=== PATIENT | male | born 1955 | race Caucasian/White ===

== ENCOUNTER 2017-03-10 09:52 | Day surgery (SDC) | payer BC ==
[~2017-03-10] VITALS: Ht 185.4 cm; Wt 122.7 kg
[~2017-03-10 09:52] MED LIST: ATOR10TA88 PO; CARV6.252 PO; CTP/1 PO; CYCL10TA6 PO; LACTATED RINGER'S 1000ML 1,000 ML IV SCH; LORA-741 PO; TRAM-10 PO; VENL150T33 PO
[2017-03-10] MEDS ORDERED: TAMS0.4C38 PO (10:21)
[2017-03-10 10:24] VITALS: BP 166/96; PULSE 78; TEMP 36.4; O2SAT 95; Ht 185.4 cm; Wt 122.7 kg
[2017-03-10] MEDS ORDERED: CEFAZOLIN 3000 MG/65 ML D5W IV SCH (10:30)
[2017-03-10] MEDS ORDERED: PROPOFOL IV EMULSION 10 MG/ML 20 ML VIAL IV ONE (11:22)
[2017-03-10] MEDS ORDERED: MIDAZOLAM HCL 1 MG/ML 2ML VIAL ONE (11:22)
[2017-03-10] MEDS ORDERED: FENTANYL CITRATE INJ 50 MCG/1 ML 2 ML VIAL ONE (11:22)
[2017-03-10] MEDS ORDERED: ONDANSETRON INJ 2 MG/ML 2 ML VIAL ONE (11:22)
[2017-03-10] MEDS ORDERED: DEXAMETHASONE SOD INJ 4 MG/ML VIAL ONE (11:22)
[2017-03-10] MEDS ORDERED: LIDOCAINE HCL 2% 2 ML VIAL (20MG/ML) ONE (11:22)
--- NOTE | 2017-03-10 12:03 | History & Physical Bridge Note ---
H&P Re-Evaluation Bridge Note: I have examined the patient, reviewed the History & Physical and in the interval since the performance of the History & Physical I have noted the following changes of clinical significance: No changes noted
--- NOTE | 2017-03-10 12:55 | [facility] Operative Report ---
Operative Report Operative Date Mar 10, 2017. Pre-Operative Diagnosis Obstructing left kidney stone Post-Operative Diagnosis Obstructing left kidney stone Procedure(s) Performed Cystoscopy, Left Stent Placement Surgeon Cindy Perinatal Coordinator Surgeon(s) none Estimated Blood Loss 0mL Findings radio-opaque left renal pelvis stone large Fluids 500mL Specimens none Drains 6 fr 26 centimeter double J stent Anesthesia IV sedation Complication(s) None Disposition Recovery Room / PACU Indications intermittently obstruction of UPJ by large left kidney stone, we plan stent to dilate ureter to allow for stone removal surgery with ureteral access sheath in 2 weeks Description of Procedure Patient was sedated and placed in lithotomy position. His genitals were prepped and draped in sterile fashion. Time out held with team. I placed a 21 fr rigid cystoscope to bladder. The urethra is unremarkable. The prostate is unremarkable medium, slightly elevates the bladder neck. The UOs are normal small oval shape. I placed a bentson wire up left ureter with some resistance to passage at the upper ureter just below the UPJ and placed a 24 centimeter 6 Fr double J stent easily. There is brisk efflux after placement. I left bladder empty and concluded case. I placed a belladonna and opium suppository for post-op pain. He transferred to recovery under my escort, in stable condition. 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 Any exceptions are noted below.
--- NOTE | 2017-03-10 12:56 | Discharge Instructions ---
Discharge Instructions Date of Service Mar 10, 2017. Admission Reason for Admission: Kidney Stone Discharge Discharge Diagnosis / Problem: left intermittently obstructing kidney stone Discharge Goals Goal(s): Decrease discomfort, Improve disease control Activity Recommendations Activity Limitations: resume your previous activity Lifting Limitations: none Exercise/Sports Limitations: as tolerated May Resume Sexual Activity: when tolerated Shower/Bathe: no limitations Driving or Machine Use: resume 1 day after discharge . Discharge Diet Recommended Diet: Regular Diet Fluid Restriction: None Procedures Procedures Performed: Cystoscopy, Left Stent Placement Pending Studies Studies pending at discharge: no Medical Emergencies . Who to Call and When: Medical Emergencies: If at any time you feel your situation is an emergency, please call 911 immediately. . Non-Emergent Contact Non-Emergency issues call your: Urologist ([phone]) Call Non-Emergent contact if: temperature is above 100.5 . . "Provider Documentation" section prepared by Jocelynn White. . VTE Core Measure Inpt VTE Proph given/why not?: SCD's [place] Drug Monitoring Program Search Results: patient reviewed within database, no issues identified
[2017-03-10 13:00] VITALS: BP 145/77; PULSE 75; TEMP 36.4; O2SAT 97
[2017-03-10] MEDS ORDERED: EpHEDrine SULFATE INJ 50 MG/ML AMP IV PRN (13:00)
[2017-03-10] MEDS ORDERED: ATROPINE SULFATE 0.1 MG/ML 5ML SYR IV PRN (13:00)
[2017-03-10 13:30] VITALS: BP 168/88; PULSE 76; TEMP 36.2; O2SAT 97
--- NOTE | 2017-03-10 14:22 | DIAGNOSTIC IMAGING REPORT ---
KUB CLINICAL HISTORY: LT CYSTO/STENT stent placement TECHNIQUE: Image intensifier COMPARISON STUDY: None FINDINGS: Passage of a guidewire to the left renal collecting system. This is followed by stent placement. IMPRESSION: Image intensifier usage intraoperatively for left ureteral stent placement The above report was generated using voice recognition software. It may contain grammatical, syntax or spelling errors. Electronically signed by: Dangelo Maya M.D. 03/10/2017 2:21 PM Dictated Date/Time: 03/10/2017 2:20 PM
--- NOTE | 2017-03-10 15:38 | Anesthesiology Progress Note ---
Anesthesia Post Op Note Date & Time Mar 10, 2017 at 15:38 Vital Signs Pain Intensity: 0 Vital Signs Past 12 Hours Date Time Temp Pulse Resp B/P (MAP) Pulse Ox O2 Delivery O2 Flow Rate FiO2 03/10/17 13:30 36.2 76 16 168/88 97 Room Air 03/10/17 13:00 36.4 75 16 145/77 97 Room Air 03/10/17 10:24 36.4 78 20 166/96 (119) 95 Room Air Notes Mental Status: alert / awake / arousable, participated in evaluation Pt Amnestic to Procedure: Yes Nausea / Vomiting: adequately controlled Pain: adequately controlled Airway Patency, RR, SpO2: stable & adequate BP & HR: stable & adequate Hydration State: stable & adequate Anesthetic Complications: no major complications apparent
== END 2017-03-10 13:33 | disposition home or self-care (01) ==
LOC: C.ACU 09:52
PROVIDERS: ATTEND Urology
DX: N20.0 Calculus of kidney (principal); F32.9 Major depressive disorder, single episode, unspecified; E78.5 Hyperlipidemia, unspecified; N52.9 Male erectile dysfunction, unspecified; I10 Essential (primary) hypertension; F17.220 Nicotine dependence, chewing tobacco, uncomplicated; Z90.49 Acquired absence of other specified parts of digestive tract

== ENCOUNTER 2017-06-05 20:22 | Observation (INO) | payer BC ==
[~2017-06-05] VITALS: Ht 185.4 cm; Wt 122.7 kg
[~2017-06-05 20:22] MED LIST changes: +ATOR10TA82 PO; -ATOR10TA88 PO; -CARV6.252 PO; -LACTATED RINGER'S 1000ML 1,000 ML IV SCH; -LORA-741 PO; +TAMS0.4C38 PO
[2017-06-05] MEDS ORDERED: FENTANYL CITRATE INJ 50 MCG/1 ML 2 ML VIAL IV STA (20:38)
[2017-06-05] MEDS ORDERED: SODIUM CHLORIDE 0.9% 500ML 500 ML IV STA (20:38)
[2017-06-05] MEDS ORDERED: HYDR-5688 PO (20:53)
[2017-06-05] MEDS ORDERED: CTP2 PO (20:53)
--- NOTE | 2017-06-05 21:17 | DIAGNOSTIC IMAGING REPORT ---
LUMBAR SPINE 2 OR 3 VIEWS CLINICAL HISTORY: 62 years-old Male presenting with severe lower back pain, surgery last , now with back spasms . TECHNIQUE: Frontal, lateral, and coned in lateral views of the lumbar spine were obtained. COMPARISON: 03/10/2017. FINDINGS: Normal lumbar lordosis. Bilateral transpedicular screw and esteban fixation of L4-S1 with bridging esteban at L4-5. Laminectomy defects at L4 and L5 with bone graft material noted. Midline posterior skin omar. Normal anatomic alignment. Nonoperative levels demonstrate normal vertebral body heights and intervertebral disc spaces. Degenerative change most apparent in the lower lumbar spine. No radiographic evidence of fracture or subluxation. No gross hardware complication. Nonobstructive bowel gas pattern. Mild gaseous distention of colon. IMPRESSION: 1. Postsurgical changes of L4-S1 posterior fusion with L4-5 laminectomies. No gross hardware complication. 2. No radiographic evidence of acute osseous injury of the lumbar spine. Electronically signed by: Rick Oswald M.D. 06/05/2017 9:15 PM Dictated Date/Time: 06/05/2017 9:12 PM
[2017-06-05 21:22] LABS: BASO % 0.3 %; BASO ABS # 0.04 K/uL (0-0.2); COMPLETE YES; EOS % 1.2 %; IG% 0.3 %; LYMPH ABS # 1.42 K/uL (1.2-3.4); MEAN CELL VOLUME 95.6 fL (80-100); MEAN CORPUSCULAR HEMOGLOBIN 30.9 pg (25-34); MEAN CORPUSCULAR HGB CONC 32.3 g/dl (32-36); MEAN PLATELET VOLUME 10.1 fL (7.4-10.4); MONO % 14.1 %; NEUT % 72.1 %; PLATELET COUNT 143 K/uL (130-400); RED BLOOD COUNT 3.66 M/uL (4.7-6.1); WHITE BLOOD COUNT 11.88 K/uL (4.8-10.8)
[2017-06-05] MEDS ORDERED: LORAZEPAM 2 MG/ML 1 ML VIAL IV STA (21:22)
[2017-06-05] MEDS ORDERED: FENTANYL CITRATE INJ 50 MCG/1 ML 2 ML VIAL IV ONE (21:30)
[2017-06-05 21:39] LABS: BUN/CREATININE RATIO 17.9 (10-20); CALCIUM 8.8 mg/dl (8.5-10.1); POTASSIUM 3.8 mmol/L (3.5-5.1)
[2017-06-05] MEDS ORDERED: ONDANSETRON INJ 2 MG/ML 2 ML VIAL IV PRN (22:15)
[2017-06-05] MEDS ORDERED: NALOXONE HCL 0.4 MG/1 ML VIAL/CARP IV PRN (22:15)
[2017-06-05] MEDS ORDERED: LORA-741 PO (22:38)
[2017-06-05] MEDS ORDERED: CARV6.252 PO (22:38)
[2017-06-05] MEDS ORDERED: HYDROmorphone HCL 0.5MG/ML 50 ML CASSETTE ONE (22:42)
--- NOTE | 2017-06-05 22:42 | EMERGENCY ROOM VISIT NOTE ---
History Report prepared by Heather: Ori Smith Under the Supervision of: Dr. Ray Gates D.O. First contact with patient: 20:28 Stated Complaint: BACK PAIN History of Present Illness The patient is a 62 year old male who presents to the Emergency Room via EMS with complaints of worsening low back pain that started last night. He says that he had back surgery due to a herniated disc in L1/L2 at [facility] 2 days ago. He states that he was discharged from the hospital yesterday. The patient adds that he had a pinched nerve, and had rods put in and had a decompression. He says that he did walk around the house with his walker a couple times since he has gotten home. The patient says that last night, the pain started in his low back, and radiates down both his legs. He states that this is where he had the pain before the surgery. Per the nursing staff, the patient rates the pain as an 8 out of 10 in severity. He denies any chest pain, shortness of breath, abdominal pain, bowel movement problems, urinary symptoms, numbness in his groin, or weakness in his legs. The patient notes no history of COPD or asthma, and he has never smoked. Source of History: patient, nursing staff Onset: Last night Position: back (lower) Symptom Intensity: 8/10 Timing: worsening Associated Symptoms: No chest pain, No SOB, No abdominal pain, No weakness, No numbness Note: Associated symptoms: Pain radiating down both legs. Denies bowel movement problems. Review of Systems See HPI for pertinent positives & negatives. A total of 10 systems reviewed and were otherwise negative. Past Medical & Surgical Medical Problems: (1) HTN (hypertension) (2) Intractable back pain Surgical Problems: (1) Previous back surgery Family History No pertinent family history Social History Smoking Status: Never Smoker Alcohol Use: heavy Housing Status: lives with significant other Occupation Status: employed Current/Historical Medications Scheduled Carvedilol (Coreg), 6.25 MG PO BID Clonidine HCl (Clonidine HCl), 0.2 MG PO BID Scheduled PRN Hydrocodone/Acetaminophen 5MG/325MG ([place] 5MG/325MG), 1-2 TABLETS PO Q4 PRN for Pain Lorazepam (Ativan), 0.5 MG PO TID PRN for Anxiety Allergies Coded Allergies: No Known Allergies (Unverified , 03/10/17) Physical Exam Vital Signs Date Time Temp Pulse Resp B/P (MAP) Pulse Ox O2 Delivery O2 Flow Rate FiO2 06/05/17 22:31 92 22 124/61 94 06/05/17 20:38 92 06/05/17 20:34 94 Nasal Cannula 2.0 06/05/17 20:30 91 22 124/61 92 Room Air Physical Exam GENERAL: Laying on back, significant distress with legs flexed. EYE EXAM: normal conjunctiva. PERRL and EOM's grossly intact. OROPHARYNX: no exudate, no erythema, lips, buccal mucosa, and tongue normal and mucous membranes are moist NECK: supple, no nuchal rigidity, no adenopathy, non-tender LUNGS: Clear to auscultation. Normal chest wall mechanics HEART: no murmurs, S1 normal and S2 normal ABDOMEN: Old abdominal incision in right lower quadrant. Abdomen soft, non- tender, normo-active bowel sounds, no masses, no rebound or guarding. BACK: There is a midline incision with dressing in place, no surrounding erythema or bleeding. SKIN: no rashes and no bruising UPPER EXTREMITIES: upper extremities are grossly normal. LOWER EXTREMITIES: No pitting edema. Flexion/extension of hip, knee, ankle, EHL 5/5 bilateral with significant pain. Gross sensations intact. NEURO EXAM: Normal sensorium. Medical Decision & Procedures ER Provider Diagnostic Interpretation: X-ray results as stated below per my review and the radiologist's interpretation : LUMBAR SPINE 2 OR 3 VIEWS CLINICAL HISTORY: 62 years-old Male presenting with severe lower back pain, surgery last , now with back spasms . TECHNIQUE: Frontal, lateral, and coned in lateral views of the lumbar spine were obtained. COMPARISON: 03/10/2017. FINDINGS: Normal lumbar lordosis. Bilateral transpedicular screw and esteban fixation of L4-S1 with bridging esteban at L4-5. Laminectomy defects at L4 and L5 with bone graft material noted. Midline posterior skin omar. Normal anatomic alignment. Nonoperative levels demonstrate normal vertebral body heights and intervertebral disc spaces. Degenerative change most apparent in the lower lumbar spine. No radiographic evidence of fracture or subluxation. No gross hardware complication. Nonobstructive bowel gas pattern. Mild gaseous distention of colon. IMPRESSION: 1. Postsurgical changes of L4-S1 posterior fusion with L4-5 laminectomies. No gross hardware complication. 2. No radiographic evidence of acute osseous injury of the lumbar spine. Electronically signed by: Rick Oswald M.D. 06/05/2017 9:15 PM Dictated Date/Time: 06/05/2017 9:12 PM Laboratory Results 06/05/17 21:05 Red Blood Count 3.66, Mean Corpuscular Volume 95.6, Mean Corpuscular Hemoglobin 30.9, Mean Corpuscular Hemoglobin Concent 32.3, Mean Platelet Volume 10.1, Neutrophils (%) (Auto) 72.1, Lymphocytes (%) (Auto) 12.0, Monocytes (%) (Auto) 14.1, Eosinophils (%) (Auto) 1.2, Basophils (%) (Auto) 0.3, Neutrophils # (Auto ) 8.57, Lymphocytes # (Auto) 1.42, Monocytes # (Auto) 1.67, Eosinophils # (Auto ) 0.14, Basophils # (Auto) 0.04 06/05/17 21:05 Test 06/05/17 21:05 White Blood Count 11.88 K/uL (4.8-10.8) Red Blood Count 3.66 M/uL (4.7-6.1) Hemoglobin 11.3 g/dL (14.0-18.0) Hematocrit 35.0 % (42-52) Mean Corpuscular Volume 95.6 fL (80-100) Mean Corpuscular Hemoglobin 30.9 pg (25-34) Mean Corpuscular Hemoglobin Concent 32.3 g/dl (32-36) Platelet Count 143 K/uL (130-400) Mean Platelet Volume 10.1 fL (7.4-10.4) Neutrophils (%) (Auto) 72.1 % Lymphocytes (%) (Auto) 12.0 % Monocytes (%) (Auto) 14.1 % Eosinophils (%) (Auto) 1.2 % Basophils (%) (Auto) 0.3 % Neutrophils # (Auto) 8.57 K/uL (1.4-6.5) Lymphocytes # (Auto) 1.42 K/uL (1.2-3.4) Monocytes # (Auto) 1.67 K/uL (0.11-0.59) Eosinophils # (Auto) 0.14 K/uL (0-0.5) Basophils # (Auto) 0.04 K/uL (0-0.2) RDW Standard Deviation 47.1 fL (36.4-46.3) RDW Coefficient of Variation 13.5 % (11.5-14.5) Immature Granulocyte % (Auto) 0.3 % Immature Granulocyte # (Auto) 0.04 K/uL (0.00-0.02) Anion Gap 7.0 mmol/L (3-11) Est Creatinine Clear Calc Drug Dose 102.4 ml/min Estimated GFR () 91.8 Estimated GFR (Non- 79.2 BUN/Creatinine Ratio 17.9 (10-20) Calcium Level 8.8 mg/dl (8.5-10.1) Total Bilirubin 0.7 mg/dl (0.2-1) Direct Bilirubin 0.2 mg/dl (0-0.2) Aspartate Amino Transf (AST/SGOT) 49 U/L (15-37) Alanine Aminotransferase (ALT/SGPT) 48 U/L (12-78) Alkaline Phosphatase 43 U/L (45-117) Total Protein 6.8 gm/dl (6.4-8.2) Albumin 3.0 gm/dl (3.4-5.0) Laboratory results per my review. Medications Administered Medications (Trade) Dose Ordered Sig/Ysabel Route Start Time Stop Time Status Last Admin Dose Admin Fentanyl Citrate (Fentanyl Inj) 50 mcg NOW STAT IV 06/05/17 20:38 06/05/17 20:39 DC 06/05/17 20:44 50 MCG Sodium Chloride 500 ml @ 999 mls/hr Q31M STAT IV 06/05/17 20:38 06/05/17 21:08 DC 06/05/17 20:43 999 MLS/HR Lorazepam (Ativan Inj) 0.5 mg NOW STAT IV 06/05/17 21:22 06/05/17 21:23 DC 06/05/17 21:28 0.5 MG Fentanyl Citrate (Fentanyl Inj) 50 mcg NOW ONCE IV 06/05/17 21:30 06/05/17 21:31 DC 06/05/17 21:43 50 MCG ED Course ED COURSE: Vital signs were reviewed and showed hypoxic vitals. The patients medical record was reviewed The above diagnostic studies were performed and reviewed. ED treatments and interventions as stated above. 2028: The patient was evaluated in room A12B. A complete history and physical examination was performed. 2037: Ordered NSS 500 ml @ 999 mls/hr IV, Fentanyl Inj 50 mcg IV. 2120: I reevaluated the patient and he is sitting up on the edge of the bed with minimal relief. 2121: Ordered Ativan Inj 0.5 mg IV. 2145: Upon reevaluation, the patient is resting. I discussed my findings with the patient and he understands and agrees with the treatment plan. Based on the patients age, coexisting illnesses, exam and lab findings the decision to treat as an inpatient was made. The patient remained stable while under my care. The patient will be evaluated for further management. 2150: I discussed the patient with Bella RENE. 2199: I discussed the patient with Bella RENE - she will evaluate the patient for further treatment. Medical Decision Differential diagnoses includes but is not limited to lumbar radiculopathy, muscle strain, facture, cauda equina, mass, and disc herniation. Patient is a 62-year-old male who presents to ER for severe back pain. He had surgery by Dr. Fisher on his lower back on this past . He has pain shooting down both legs which is old. No new weakness or numbness. CBC shows no significant leukocytosis or anemia. BMP all LFTs, and bilirubin was unremarkable. X-rays of the back show nothing acute at this time. He was given 10 mg of IV morphine prior to arrival. He was given 2 doses of IV fentanyl here along with Ativan. He had mild improvement of his pain. Discussed with internal medicine and spine. Patient was noted to orthopedic spine for pain control and postoperative back pain, hypoxic secondary to narcotics on nasal cannula. Medication Reconcilliation Current Medication List: was personally reviewed by me Blood Pressure Screening Patient's blood pressure: Normal blood pressure Consults Time Called: 2145 Consulting Physician: Bella RENE Returned Call: 2150 I discussed the patient with Bella RENE. Additional Consults: Time Called: 2154 Consulted Physician: Bella RENE Returned Call: 2199 Additional Comments: I discussed the patient with Bella Arleen - PA-C - [facility] - she will evaluate the patient for further treatment. Impression Primary Impression: Postoperative back pain Scribe Attestation The scribe's documentation has been prepared under my direction and personally reviewed by me in its entirety. I confirm that the note above accurately reflects all work, treatment, procedures, and medical decision making performed by me. Departure Information Dispostion Being Evaluated By Hospitalist Referrals Mook Willams (PCP)
[2017-06-05 23:15] VITALS: BP 151/70; PULSE 93; TEMP 36.6; O2SAT 93; Ht 185.4 cm; Wt 122.7 kg
[2017-06-05 23:50] VITALS: BP 151/72; PULSE 92; TEMP 37; O2SAT 95
[2017-06-06] VITALS (10 sets, daily range): BP systolic 133–160; BP diastolic 72–94; PULSE 83–92; TEMP 36.4–37; O2SAT 87–97
[2017-06-06] MEDS: LACTATED RINGER'S 1000ML 1,000 ML IV SCH ×2 (00:43→11:30)
[2017-06-06] MEDS: DEXAMETHASONE INJ 8 MG in SYRINGE 0 ML IV SCH ×3 (00:43→17:00)
[2017-06-06] MEDS: SODIUM CHLORIDE 0.9% 1000ML 1,000 ML IV SCH ×2 (00:49→21:36)
--- NOTE | 2017-06-06 02:36 | Medical Consult ---
Consultation Date of Consultation: Jun 06, 2017. Attending Physician: Derrick Emery D.O. Reason for Consultation: Hypoxia History of Present Illness 62 year old male with PMH of HTN, Dyslipidemia, Anxiety, Back pain, recent back surgery presents to the Emergency Room via EMS with complaints of worsening low back pain Pt was had back surgery on due to spinal stenosis and disc herniations at L4-L5 and L5-S1 at [facility]. He states that he was discharged from the hospital on Wednesday. Pt said that yesterday he developed severe back pain/spasm, 10/10 in severity. In the ER he received 10mg IV morphine and fentanyl IV 15paxm1, then soon after he developed hypoxia with sat in the 85's. He was placed on 2 NC and saturated at 94%. Pt said that he pain is now 7/10. He was stared on Dilaudid pump by ortho. [facility] hospitalist team was consulted to evaluate for the hypoxia. Pt said that he usually drinks about 6 beers and last alcohol intake was last Wednesday. Denies any chest pain, palpitation, dizziness, fever, chills SOB, bowel and bladder loss. Past Medical/Surgical History Medical Problems: (1) Postoperative back pain Status: Acute HTN Dyslipidemia Family History No pertinent family history Social History Smoking Status: Never Smoker Alcohol Use: often Housing Status: lives with significant other Occupation Status: employed Allergies Coded Allergies: No Known Allergies (Unverified , 03/10/17) Current Inpatient Medications Current Inpatient Medications Medications (Trade) Dose Ordered Sig/Ysabel Route Start Time Stop Time Status Last Admin Dose Admin Lactated Ringer's 1,000 ml @ 75 mls/hr [id number] IV 06/05/17 22:02 07/05/17 22:01 06/06/17 00:43 75 MLS/HR Docusate Sodium (coLACE CAP) 100 mg BID PO 06/06/17 09:00 07/06/17 08:59 Dexamethasone Sodium Phosphate 8 mg/Syringe 2 ml @ 1 mls/min Q8H IV 06/06/17 00:00 06/06/17 16:01 06/06/17 00:43 1 MLS/MIN Ondansetron HCl (Zofran Inj) 4 mg Q6H PRN IV 06/05/17 22:15 07/05/17 22:14 Lorazepam 1 mg/ Syringe 0.5 ml @ 1 mls/min Q6H PRN IV 06/05/17 22:15 07/05/17 22:14 Naloxone HCl (Narcan Inj) 0.1 mg Q5M PRN IV 06/05/17 22:15 07/05/17 22:14 Hydromorphone HCl (Dilaudid Carcass Trimmer) 25 mg PRN PRN IV 06/05/17 22:15 06/19/17 22:14 Sodium Chloride 1,000 ml @ 15 mls/hr Q24H IV 06/05/17 22:02 07/05/17 22:01 Carvedilol (Coreg Tab) 6.25 mg BID PO 06/06/17 09:00 07/06/17 08:59 Clonidine HCl (Catapres Tab) 0.2 mg BID PO 06/06/17 09:00 07/06/17 08:59 Review of Systems Constitutional: No fever, No chills Eyes: No redness, No discharge ENT: No hearing loss, No nasal symptoms Respiratory: No cough, No sputum, No wheezing, No shortness of breath, No dyspnea on exertion Cardiovascular: No chest pain, No orthopnea, No claudication, No palpitations Abdomen: No pain, No nausea, No vomiting Musculoskeletal: + problem reported (back pain/spasm), No calf pain Genitourinary - Male: No hematuria, No dysuria Neurologic: No memory loss Psychiatric: No substance abuse Endocrine: No fatigue, No excessive thirst Hematologic / Lymphatic: No abnormal bleeding/bruising Integumentary: No rash, No itch Physical Exam Date Time Temp Pulse Resp B/P (MAP) Pulse Ox O2 Delivery O2 Flow Rate FiO2 06/06/17 00:50 36.7 91 17 152/75 (100) 94 Nasal Cannula 1.0 06/05/17 23:50 37.0 92 17 151/72 (98) 95 Nasal Cannula 2.0 06/05/17 23:15 36.6 93 18 151/70 93 Nasal Cannula 2.0 06/05/17 22:31 92 22 124/61 94 06/05/17 20:38 92 06/05/17 20:34 94 Nasal Cannula 2.0 06/05/17 20:30 91 22 124/61 92 Room Air General Appearance: WD/WN, no apparent distress Head: normocephalic, atraumatic Eyes: PERRL, EOMI ENT: hearing grossly normal Neck: no JVD, trachea midline Respiratory/Chest: no respiratory distress, no accessory muscle use Cardiovascular: no JVD, no murmur, + tachycardia Abdomen/GI: normal bowel sounds, non tender, soft Back: + muscle spasm Extremities/Musculoskelatal: no calf tenderness Neurologic/Psych: alert, oriented x 3 Skin: warm/dry, no rash Laboratory Results Last 24 Hours Test 06/05/17 21:05 White Blood Count 11.88 K/uL Red Blood Count 3.66 M/uL Hemoglobin 11.3 g/dL Hematocrit 35.0 % Mean Corpuscular Volume 95.6 fL Mean Corpuscular Hemoglobin 30.9 pg Mean Corpuscular Hemoglobin Concent 32.3 g/dl Platelet Count 143 K/uL Mean Platelet Volume 10.1 fL Neutrophils (%) (Auto) 72.1 % Lymphocytes (%) (Auto) 12.0 % Monocytes (%) (Auto) 14.1 % Eosinophils (%) (Auto) 1.2 % Basophils (%) (Auto) 0.3 % Neutrophils # (Auto) 8.57 K/uL Lymphocytes # (Auto) 1.42 K/uL Monocytes # (Auto) 1.67 K/uL Eosinophils # (Auto) 0.14 K/uL Basophils # (Auto) 0.04 K/uL RDW Standard Deviation 47.1 fL RDW Coefficient of Variation 13.5 % Immature Granulocyte % (Auto) 0.3 % Immature Granulocyte # (Auto) 0.04 K/uL Sodium Level 137 mmol/L Potassium Level 3.8 mmol/L Chloride Level 104 mmol/L Carbon Dioxide Level 26 mmol/L Anion Gap 7.0 mmol/L Blood Urea Nitrogen 18 mg/dl Creatinine 1.00 mg/dl Est Creatinine Clear Calc Drug Dose 102.4 ml/min Estimated GFR () 91.8 Estimated GFR (Non- 79.2 BUN/Creatinine Ratio 17.9 Random Glucose 116 mg/dl Calcium Level 8.8 mg/dl Total Bilirubin 0.7 mg/dl Direct Bilirubin 0.2 mg/dl Aspartate Amino Transf (AST/SGOT) 49 U/L Alanine Aminotransferase (ALT/SGPT) 48 U/L Alkaline Phosphatase 43 U/L Total Protein 6.8 gm/dl Albumin 3.0 gm/dl Assessment & Plan Back Pain S/p day 3 decompression/ laminectomies surgery performed by Dr. Xiao in [place] Started on Dilaudid pump and steroid by ortho Being managed by Ortho Hypoxia episode Related to opioids ( occurred after received fentanyl [id number] and IV morphine 10mg) Denies any URI symptoms continue incentive spirometry consider chest Xray if desaturate If does not improve, will need a CTA chest to r/o PE Continue monitor HTN Elevated BP possible related to Pain Continue clonidine and Coreg Monitor BP DVT px As per ORTHO Will need to start on px if no plan to go to OR will add SCDs for now CODE STATUS FULL CODE
[2017-06-06] MEDS: LORAZEPAM INJ 1 MG in SYRINGE 0 ML IV PRN (06:11)
[2017-06-06] MEDS: HYDROmorphone HCL 0.5MG/ML 50 ML CASSETTE IV PRN ×3 (07:08→23:04)
[2017-06-06] MEDS: DOCUSATE SODIUM 100 MG CAP PO SCH ×2 (07:51→21:34)
[2017-06-06] MEDS: CARVEDILOL 6.25 MG TAB PO SCH ×2 (07:51→21:34)
[2017-06-06] MEDS: CLONIDINE HCL 0.1 MG TAB PO SCH ×2 (07:51→21:34)
--- NOTE | 2017-06-06 09:25 | History and Physical ---
History & Physical Date & Time of Service: Jun 06, 2017 at 09:20 Chief Complaint: Intractable Back Pain Primary Care Physician: Mook Willams History of Present Illness Source: patient Is a 62-year-old gentleman who underwent a lumbar decompression with instrumented fusion L4 through S1 3 days ago which is June 03 in [facility] voice by Dr. Xiao. Patient was discharged 24 hours later. Approximately 24 hours after discharge patient was at home and declining. He is struggling with pain control. Most of his pain is in his back. He does have leg pain but he reports his leg pain is greatly improved compared to preoperative status. He's been Ambulatng with a walker at home. Denies bowel or bladder dysfunction. He reports he's had a bowel movement since his surgery. He was taking oxycodone at home for pain control. Denies fevers or chills. Past Medical/Surgical History Medical Problems: (1) HTN (hypertension) Status: Chronic Surgical Problems: (1) Previous back surgery Status: Resolved Family History No pertinent family history Social History Smoking Status: Never Smoker Alcohol Use: often Occupational Status: employed Multi-Drug Resistant Organisms History of MDRO: No Allergies Coded Allergies: No Known Allergies (Unverified , 03/10/17) Home Medications Scheduled Carvedilol (Coreg), 6.25 MG PO BID Clonidine HCl (Clonidine HCl), 0.2 MG PO BID Scheduled PRN Hydrocodone/Acetaminophen 5MG/325MG ([place] 5MG/325MG), 1-2 TABLETS PO Q4 PRN for Pain Lorazepam (Ativan), 0.5 MG PO TID PRN for Anxiety Review of Systems Back pain Physical Exam Vital Signs Date Time Temp Pulse Resp B/P (MAP) Pulse Ox O2 Delivery O2 Flow Rate FiO2 06/06/17 07:38 93 Nasal Cannula 2.0 06/06/17 07:36 37.0 87 12 152/84 (106) 87 Room Air 06/06/17 03:21 36.5 87 17 138/87 (104) 94 Nasal Cannula 1.0 06/06/17 01:50 36.4 91 17 146/73 (97) 93 Nasal Cannula 1.0 06/06/17 00:50 36.7 91 17 152/75 (100) 94 Nasal Cannula 1.0 06/05/17 23:50 37.0 92 17 151/72 (98) 95 Nasal Cannula 2.0 06/05/17 23:30 Nasal Cannula 2.0 06/05/17 23:15 36.6 93 18 151/70 93 Nasal Cannula 2.0 06/05/17 22:31 92 22 124/61 94 06/05/17 20:38 92 06/05/17 20:34 94 Nasal Cannula 2.0 06/05/17 20:30 91 22 124/61 92 Room Air General Appearance: WD/WN Head: normocephalic Eyes: normal inspection ENT: normal ENT inspection, hearing grossly normal Neck: supple Respiratory/Chest: no respiratory distress Cardiovascular: regular rate, rhythm Abdomen/GI: non tender Extremities/Musculoskelatal: normal inspection, no calf tenderness, non-tender Neurologic/Psych: no motor/sensory deficits, oriented x 3 Skin: normal color, warm/dry Lymphatic: no adenopathy There is a dressing over the lumbar incision. This was removed for inspection. There is no drainage. There is no erythema. There is modest edema. No ecchymosis. Lower extremities Are soft and nontender bilaterally. Negative tension signs bilaterally. Strength is intact bilateral lower extremities. Diagnostics Laboratory Results Results Past 24 Hours Test 06/05/17 21:05 Range/Units White Blood Count 11.88 4.8-10.8 K/uL Red Blood Count 3.66 4.7-6.1 M/uL Hemoglobin 11.3 14.0-18.0 g/dL Hematocrit 35.0 42-52 % Mean Corpuscular Volume 95.6 80-100 fL Mean Corpuscular Hemoglobin 30.9 25-34 pg Mean Corpuscular Hemoglobin Concent 32.3 32-36 g/dl Platelet Count 143 130-400 K/uL Mean Platelet Volume 10.1 7.4-10.4 fL Neutrophils (%) (Auto) 72.1 % Lymphocytes (%) (Auto) 12.0 % Monocytes (%) (Auto) 14.1 % Eosinophils (%) (Auto) 1.2 % Basophils (%) (Auto) 0.3 % Neutrophils # (Auto) 8.57 1.4-6.5 K/uL Lymphocytes # (Auto) 1.42 1.2-3.4 K/uL Monocytes # (Auto) 1.67 0.11-0.59 K/uL Eosinophils # (Auto) 0.14 0-0.5 K/uL Basophils # (Auto) 0.04 0-0.2 K/uL RDW Standard Deviation 47.1 36.4-46.3 fL RDW Coefficient of Variation 13.5 11.5-14.5 % Immature Granulocyte % (Auto) 0.3 % Immature Granulocyte # (Auto) 0.04 0.00-0.02 K/uL Sodium Level 137 136-145 mmol/L Potassium Level 3.8 3.5-5.1 mmol/L Chloride Level 104 98-107 mmol/L Carbon Dioxide Level 26 21-32 mmol/L Anion Gap 7.0 3-11 mmol/L Blood Urea Nitrogen 18 7-18 mg/dl Creatinine 1.00 0.60-1.40 mg/dl Est Creatinine Clear Calc Drug Dose 102.4 ml/min Estimated GFR () 91.8 Estimated GFR (Non- 79.2 BUN/Creatinine Ratio 17.9 10-20 Random Glucose 116 70-99 mg/dl Calcium Level 8.8 8.5-10.1 mg/dl Total Bilirubin 0.7 0.2-1 mg/dl Direct Bilirubin 0.2 0-0.2 mg/dl Aspartate Amino Transf (AST/SGOT) 49 15-37 U/L Alanine Aminotransferase (ALT/SGPT) 48 12-78 U/L Alkaline Phosphatase 43 45-117 U/L Total Protein 6.8 6.4-8.2 gm/dl Albumin 3.0 3.4-5.0 gm/dl Diagnostic Radiology [~ rep ct add3]] LUMBAR SPINE 2 OR 3 VIEWS CLINICAL HISTORY: 62 years-old Male presenting with severe lower back pain, surgery last , now with back spasms . TECHNIQUE: Frontal, lateral, and coned in lateral views of the lumbar spine were obtained. COMPARISON: 03/10/2017. FINDINGS: Normal lumbar lordosis. Bilateral transpedicular screw and esteban fixation of L4-S1 with bridging esteban at L4-5. Laminectomy defects at L4 and L5 with bone graft material noted. Midline posterior skin omar. Normal anatomic alignment. Nonoperative levels demonstrate normal vertebral body heights and intervertebral disc spaces. Degenerative change most apparent in the lower lumbar spine. No radiographic evidence of fracture or subluxation. No gross hardware complication. Nonobstructive bowel gas pattern. Mild gaseous distention of colon. IMPRESSION: 1. Postsurgical changes of L4-S1 posterior fusion with L4-5 laminectomies. No gross hardware complication. 2. No radiographic evidence of acute osseous injury of the lumbar spine. Impression Assessment and Plan Assessment is intractable back pain status post lumbar decompression with instrumented fusion L4 through S1 performed on 06/03/[address] Xiao Plan: Patient is admitted to orthopedic service for pain control. POUNDMASTER is been started. Antispasmodics have been ordered as well. DVT prophylaxis is teds and SCDs. I've given him 24 hours of Decadron. We will have him bedrest with bathroom privileges for at least the next 24 hours. Advanced Directives Existing Living Will: No Existing Power of Metrologist: No VTE Prophylaxis VTE Risk Assessment Done? Y/N: Yes Risk Level: Moderate
[2017-06-06] MEDS: CYCLOBENZAPRINE HCL 10 MG TAB PO PRN ×2 (11:28→22:34)
--- NOTE | 2017-06-06 18:04 | Progress Note ---
Internal Med Progress Note Date of Service: Jun 06, 2017. Provider Documentation: sitting on the chair. On Dilaudid silica spray mixer pump. says still has significant pain. Denies chest pain or sob.Afebrile. No nausea. pain management as per ortho. Will monitor the HTN. PT/OT and social service for d/c planning ASSESSMENT & PLAN: [] DVT PROPHYLAXIS [] DISPOSITION [] Vital Signs: Date Time Temp Pulse Resp B/P (MAP) Pulse Ox O2 Delivery O2 Flow Rate FiO2 06/06/17 15:15 36.7 85 18 160/94 (116) 97 Room Air 06/06/17 07:50 Room Air 06/06/17 07:38 93 Nasal Cannula 2.0 06/06/17 07:36 37.0 87 12 152/84 (106) 87 Room Air 06/06/17 03:21 36.5 87 17 138/87 (104) 94 Nasal Cannula 1.0 06/06/17 01:50 36.4 91 17 146/73 (97) 93 Nasal Cannula 1.0 06/06/17 00:50 36.7 91 17 152/75 (100) 94 Nasal Cannula 1.0 06/05/17 23:50 37.0 92 17 151/72 (98) 95 Nasal Cannula 2.0 06/05/17 23:30 Nasal Cannula 2.0 06/05/17 23:15 36.6 93 18 151/70 93 Nasal Cannula 2.0 06/05/17 22:31 92 22 124/61 94 06/05/17 20:38 92 06/05/17 20:34 94 Nasal Cannula 2.0 06/05/17 20:30 91 22 124/61 92 Room Air Lab Results: Results Past 24 Hours Test 06/05/17 21:05 Range/Units White Blood Count 11.88 4.8-10.8 K/uL Red Blood Count 3.66 4.7-6.1 M/uL Hemoglobin 11.3 14.0-18.0 g/dL Hematocrit 35.0 42-52 % Mean Corpuscular Volume 95.6 80-100 fL Mean Corpuscular Hemoglobin 30.9 25-34 pg Mean Corpuscular Hemoglobin Concent 32.3 32-36 g/dl Platelet Count 143 130-400 K/uL Mean Platelet Volume 10.1 7.4-10.4 fL Neutrophils (%) (Auto) 72.1 % Lymphocytes (%) (Auto) 12.0 % Monocytes (%) (Auto) 14.1 % Eosinophils (%) (Auto) 1.2 % Basophils (%) (Auto) 0.3 % Neutrophils # (Auto) 8.57 1.4-6.5 K/uL Lymphocytes # (Auto) 1.42 1.2-3.4 K/uL Monocytes # (Auto) 1.67 0.11-0.59 K/uL Eosinophils # (Auto) 0.14 0-0.5 K/uL Basophils # (Auto) 0.04 0-0.2 K/uL RDW Standard Deviation 47.1 36.4-46.3 fL RDW Coefficient of Variation 13.5 11.5-14.5 % Immature Granulocyte % (Auto) 0.3 % Immature Granulocyte # (Auto) 0.04 0.00-0.02 K/uL Sodium Level 137 136-145 mmol/L Potassium Level 3.8 3.5-5.1 mmol/L Chloride Level 104 98-107 mmol/L Carbon Dioxide Level 26 21-32 mmol/L Anion Gap 7.0 3-11 mmol/L Blood Urea Nitrogen 18 7-18 mg/dl Creatinine 1.00 0.60-1.40 mg/dl Est Creatinine Clear Calc Drug Dose 102.4 ml/min Estimated GFR () 91.8 Estimated GFR (Non- 79.2 BUN/Creatinine Ratio 17.9 10-20 Random Glucose 116 70-99 mg/dl Calcium Level 8.8 8.5-10.1 mg/dl Total Bilirubin 0.7 0.2-1 mg/dl Direct Bilirubin 0.2 0-0.2 mg/dl Aspartate Amino Transf (AST/SGOT) 49 15-37 U/L Alanine Aminotransferase (ALT/SGPT) 48 12-78 U/L Alkaline Phosphatase 43 45-117 U/L Total Protein 6.8 6.4-8.2 gm/dl Albumin 3.0 3.4-5.0 gm/dl
[2017-06-06] MEDS ORDERED: DOCUSATE SODIUM 100 MG CAP PO PRN (19:45)
[2017-06-06] MEDS: POLYETHYLENE (MIRALAX) 17 GM PACK PO SCH (21:34)
[2017-06-07] MEDS: LACTATED RINGER'S 1000ML 1,000 ML IV SCH (00:27)
[2017-06-07 03:38] VITALS: BP 152/76; PULSE 87; TEMP 36.9; O2SAT 98
[2017-06-07] MEDS: HYDROmorphone HCL 0.5MG/ML 50 ML CASSETTE IV PRN (07:03)
[2017-06-07 08:15] VITALS: BP 167/94; PULSE 90; TEMP 36.7; O2SAT 94
[2017-06-07 08:27] VITALS: O2SAT 94
[2017-06-07] MEDS: CARVEDILOL 6.25 MG TAB PO SCH (09:00)
[2017-06-07] MEDS: POLYETHYLENE (MIRALAX) 17 GM PACK PO SCH (09:00)
[2017-06-07] MEDS: CLONIDINE HCL 0.1 MG TAB PO SCH (09:00)
[2017-06-07] MEDS: DOCUSATE SODIUM 100 MG CAP PO SCH (09:01)
[2017-06-07] MEDS: LORAZEPAM INJ 1 MG in SYRINGE 0 ML IV PRN (10:04)
--- NOTE | 2017-06-07 10:47 | Discharge Instructions ---
Discharge Instructions Date of Service Jun 07, 2017. Admission Reason for Admission: Intractable Back Pain Discharge Discharge Diagnosis / Problem: back pain Discharge Goals Goal(s): Improve function Activity Recommendations Activity Limitations: per Instructions/Follow-up section . Instructions / Follow-Up Instructions / Follow-Up ACTIVITY RECOMMENDATIONS: SELF CARE INSTRUCTIONS AFTER THORACIC/LUMBAR FUSIONS 1. You may walk to your tolerance. It is good exercise for your legs and back. Expect some back and intermittent leg aches and pains. 2. You may perform "counter-top" level activities (make a sandwich, liam with a project, etc.). 3. No bending or lifting of more than 10 pounds or back twisting of any nature (roll like a log when turning in bed). 4. You may ride in a car for 20-30 minutes at a time. No driving until after your first visit with your doctor. 5. Frequent changes of position and restricting sitting to 30 minutes at a time will help limit the amount of back spasms and stiffness you may experience. 6. You may discontinue the use of ambulatory aids (cane, crutches, etc.) once your strength and confidence allow. 7. You may factory maintenance technician the shower and let water strike your incision when you arrive home at least once daily. Do not take a tub bath, sit in a hot tub or go into a swimming pool until after your first recheck in the office. SPECIAL CARE INSTRUCTIONS: VERY IMPORTANT TO READ AND REVIEW A. Your surgical incision has been closed with a cosmetic suture under the skin that will dissolve in about 6 weeks. In 14 days, you can use a pair of clean scissors and cut the suture that is left outside of the skin at the ends of your incision. 1. The small skin tapes can be removed 7 days after surgery if they have not fallen off by that point. 2. You may keep the wound open to air as much as possible to promote healing after post-op day number 5 unless told otherwise by your doctor. 3. If you think the wound looks like it is becoming infected (redness or worsening drainage) and/or you are experiencing fever, chill or worsening back pain and muscle spasms, contact the office so that we may evaluate you as soon as possible. B. Complications are uncommon, but please contact us if you have any signs or symptoms of: 1. wound infection (fever higher than 102.5 degrees F, redness, separation of wound, drainage, or increasing pain from the incision) 2. blood clots in legs (pain, swelling, redness and warmth in legs) 3. urinary tract infection (fever higher than 102.5 degrees F, burning upon urination or increased frequency of urination) 4. nerve problems (inability to walk on your toes or heels, numbness, loss of bowel or bladder control) 5. any other symptoms that concern you C. Please call the office at if you have any concerns or questions about your operation or recovery. D. No smoking! Smoking drastically decreases the chance of a solid fusion. E. Do not take any anti-inflammatory medications (Indocin, Advil, Motrin, Aspirin, Naprosyn, etc.) as these may inhibit the chance of a solid fusion. Tylenol is okay to take for pain. MANAGING PAIN AFTER SPINAL SURGERY 1. Narcotic medication is intended for short-term use and will be provided for surgical pain. Surgical pain usually lasts for a period of 4-6 weeks. Narcotic medication includes Percocet, Vicodin, Darvocet, Tylenol #3 or Lortab. 2. Longer-term pain is more appropriately treated with non-narcotic medication such as Tylenol ES. 3. Muscle spasm is not appropriately treated with narcotics. Muscle relaxers such as Soma, Flexeril or Skelaxin can be used along with Tylenol ES. 4. Remember that we all live with some "aches and pains". This is not unusual or uncommon after an injury or as we get older. a. Back pain is expected and may include muscle spasms for 4 to 6 weeks after surgery. The pain should gradually improve. If the pain worsens for no apparent reason, please contact the office. b. Intermittent leg pain may also be experienced and should not be concerned about unless it worsens for no apparent reason. If so, please contact the office. 5. We will provide appropriate medication within the normal guidelines of their prescribed use. We will also be very cautious and aware of potential abuse and extended duration of patients' medication needs. a. Pain medications are for your comfort and to assist with sleep and rest so that the tissue can heal. They are not provided in order to return to normal activity and should not be used through the day. To do so or worsening pain at night can result from ongoing tissue damage and development of tolerance to the prescribed medicine. 6. Please allow 2-3 days to process refills. Prescriptions will not be mailed but must be picked up at the office. FOLLOW UP VISIT: Keep your scheduled follow-up appointment. Any questions, please call the office at . Current Hospital Diet Patient's current hospital diet: Regular Diet Discharge Diet Recommended Diet: Regular Diet Pending Studies Studies pending at discharge: no Medical Emergencies . Who to Call and When: Medical Emergencies: If at any time you feel your situation is an emergency, please call 911 immediately. . Non-Emergent Contact Non-Emergency issues call your: Primary Care Provider . "Provider Documentation" section prepared by Derrick Emery. . VTE Core Measure Inpt VTE Proph given/why not?: Ricki Coley, SCD's
[2017-06-07 10:53] VITALS: BP 167/94; PULSE 90; TEMP 36.7; O2SAT 94
[2017-06-07] MEDS ORDERED: FLX10 PO (10:54)
[2017-06-07] MEDS: CYCLOBENZAPRINE HCL 10 MG TAB PO PRN (11:00)
--- NOTE | 2017-06-07 14:09 | Discharge Summary ---
Orthopedic Discharge Summary Admission Date/Reason Jun 05, 2017 at 22:09 Intractable Back Pain. Discharge Date/Disposition Jun 07, 2017 Home Diagnosis Principal Diagnosis: Back pain Admission Physical Exam As per Admitting History & Physical. Hospital Course Patient was admitted secondary to intractable back pain status post lumbar decompression fusion. His pain is markedly improved with accommodation a bedrest and appropriate medication. Socially he was discharged home discharge orders and instructions found the chart for further review. Discharge Instructions Please refer to the electronic Patient Visit Report (Discharge Instructions) for additional information.
== END 2017-06-07 11:45 | disposition home or self-care (01) ==
LOC: EDBD 20:22 → C.EDA 20:23 → C.MSN 22:09 → ENRESERV 22:20
PROVIDERS: ADMIT Orthopaedic Surgery Orthopaedic Surgery of the Spine; ATTEND Orthopaedic Surgery Orthopaedic Surgery of the Spine
DX: M54.9 Dorsalgia, unspecified (principal); I10 Essential (primary) hypertension; F41.9 Anxiety disorder, unspecified; E78.5 Hyperlipidemia, unspecified; Z98.890 Other specified postprocedural states; Z79.899 Other long term (current) drug therapy

== ENCOUNTER 2017-06-09 00:33 | Emergency (ER) | payer BC ==
[~2017-06-09] VITALS: Ht 185.4 cm; Wt 125.0 kg
[~2017-06-09 00:33] MED LIST changes: -ATOR10TA82 PO; +CARV6.252 PO; -CTP/1 PO; +CTP2 PO; -CYCL10TA6 PO; +FLX10 PO; +HYDR-5688 PO; +LORA-741 PO; -TAMS0.4C38 PO; -TRAM-10 PO; -VENL150T33 PO
[2017-06-09 00:43] VITALS: Ht 185.4 cm; Wt 125.0 kg
[2017-06-09] MEDS ORDERED: HYDROmorphone INJ 1 MG/ML SYR IV STA ×3 (00:54→03:53)
[2017-06-09] MEDS ORDERED: ONDANSETRON INJ 2 MG/ML 2 ML VIAL IV STA (00:54)
[2017-06-09] MEDS ORDERED: CYCL10TA6 PO (01:12)
[2017-06-09] MEDS ORDERED: DEXAMETHASONE **PF** INJ 10 MG/ML VIAL IV ONE (01:15)
[2017-06-09 01:16] LABS: BASO % 0.3 %; BASO ABS # 0.02 K/uL (0-0.2); COMPLETE YES; EOS % 2.9 %; HEMATOCRIT 39.7 % (42-52); IG% 0.9 %; LYMPH % 24.4 %; LYMPH ABS # 1.61 K/uL (1.2-3.4); MEAN CELL VOLUME 94.1 fL (80-100); MEAN CORPUSCULAR HEMOGLOBIN 31.3 pg (25-34); MEAN CORPUSCULAR HGB CONC 33.2 g/dl (32-36); MEAN PLATELET VOLUME 9.5 fL (7.4-10.4); MONO % 16.2 %; NEUT % 55.3 %; PLATELET COUNT 256 K/uL (130-400); RED BLOOD COUNT 4.22 M/uL (4.7-6.1); WHITE BLOOD COUNT 6.59 K/uL (4.8-10.8)
[2017-06-09 01:46] LABS: ALB/GLOB RATIO 0.7 (0.9-2); BUN/CREATININE RATIO 21.1 (10-20); C-REACTIVE PROTEIN 4.37 mg/dl (0-0.29); CALCIUM 8.4 mg/dl (8.5-10.1); CREATININE 0.9 mg/dl (0.60-1.40); POTASSIUM 3.9 mmol/L (3.5-5.1)
[2017-06-09] MEDS ORDERED: FENTANYL CITRATE INJ 50 MCG/1 ML 2 ML VIAL IV ONE (02:00)
[2017-06-09 02:34] LABS: URINE APPEARANCE CLEAR (CLEAR); URINE BILIRUBIN NEG (NEG); URINE COLOR YELLOW; URINE NITRITE NEG (NEG); URINE SPECIFIC GRAVITY 1.026 (1.000-1.030); UROBILINOGEN NEG (NEG); ZZURINE CULT IF INDIC CATH NO
[2017-06-09 02:51] LABS: MANUAL MICROSCOPIC REQUIRED? NO; REVIEW REQ? NO
[2017-06-09] MEDS ORDERED: LORAZEPAM 2 MG/ML 1 ML VIAL IV STA ×2 (04:12→05:23)
[2017-06-09] MEDS ORDERED: DIAZEPAM INJ 5 MG/ML 2 ML CARP IV STA (06:34)
[2017-06-09] MEDS ORDERED: PROPOFOL IV EMULSION 10 MG/ML 100 ML VIAL IV ONE (07:04)
--- NOTE | 2017-06-09 07:22 | EMERGENCY ROOM VISIT NOTE ---
History First contact with patient: 00:48 Chief Complaint: BACK PAIN Stated Complaint: BACK,BACK OF LEG PAIN History of Present Illness The patient is a 62 year old male who presents to the Emergency Room with complaints of severe 10/10 back pain radiating down both of his legs. The patient had a surgical fusion performed by Dr Xiao in [place] on 06/03/2017. On 06/05 2017 the patient presented to this facility due to worsening or severe pain. He was admitted for intractable pain and was followed by Dr Emery of [facility]. The patient was discharged on 06/07/2017 after being treated here with IV Decadron and Dilaudid [employer]. The patient states that he went home and has been taking oral Vicodin without any improvement of his pain. He states that his pain has been worsening severely over the course of today. He has not had fever or chills. The patient is evidently not urinated in the past 22 hours. He states that his pain is worse than it has been previously and is radiating down both of his legs. Previously it was worse down his left leg, and unremarkable and his right leg. The patient does not have new injury or trauma. Review of Systems More than 10 systems were reviewed and otherwise negative with the exception of history of present illness. Past Medical/Surgical History Medical Problems: (1) HTN (hypertension) (2) Intractable back pain Surgical Problems: (1) Previous back surgery Family History No pertinent family history Social History Smoking Status: Never Smoker Alcohol Use: heavy Housing Status: lives with significant other Occupation Status: employed Current/Historical Medications Scheduled Carvedilol (Coreg), 6.25 MG PO BID Clonidine HCl (Clonidine HCl), 0.2 MG PO BID Scheduled PRN Cyclobenzaprine Hcl (Flexeril), 10 MG PO TID PRN for muscle spasms Hydrocodone/Acetaminophen 5MG/325MG ([place] 5MG/325MG), 1-2 TABLETS PO Q4 PRN for Pain Lorazepam (Ativan), 0.5 MG PO TID PRN for Anxiety Physical Exam Vital Signs Date Time Temp Pulse Resp B/P (MAP) Pulse Ox O2 Delivery O2 Flow Rate FiO2 06/09/17 07:02 98 20 149/111 94 Nasal Cannula 3.0 06/09/17 06:50 93 24 143/113 95 3.0 06/09/17 06:46 93 16 190/115 95 Nasal Cannula 2.0 06/09/17 06:15 94 20 171/92 93 Nasal Cannula 2.0 06/09/17 05:53 91 06/09/17 05:46 94 14 186/114 97 Nasal Cannula 06/09/17 04:37 76 16 160/108 96 Nasal Cannula 2.0 06/09/17 03:15 86 16 153/99 99 Nasal Cannula 2.0 06/09/17 02:09 81 20 148/91 94 Room Air 06/09/17 01:26 94 32 152/94 92 Room Air 06/09/17 00:43 36.9 100 24 181/112 97 Room Air Physical Exam VITALS: Vitals are noted on the nurse's note and reviewed by myself. Vital signs with tachycardia and elevated blood pressure GENERAL: White male who is in severe discomfort secondary to his stated complaint. He is crying and unable to move from a seated position without obvious discomfort. NECK: Supple without nuchal rigidity. No lymphadenopathy. No thyromegaly. Cervical spine is nontender. HEART: Regular rate and rhythm without murmurs gallops or rubs. LUNGS: Clear to auscultation bilaterally without wheezes, rales or rhonchi. No retractions or accessory muscle use. ABDOMEN: Positive normal bowel sounds x 4. Soft with suprapubic tenderness BACK: No appreciable tenderness in the cervical or thoracic spine. There is a vertical incision in the lower lumbar area that is well approximated without drainage or discharge. No obvious erythema or edema over the incision site. There is tenderness of the lower lumbar spine roughly in the L4/L5 distribution. There is minimal bilateral SI joint tenderness. Positive straight leg raise bilaterally. DTRs appear intact to the lower extremities. No saddle paresthesias. Medical Decision & Procedures Laboratory Results 06/09/17 01:05 Red Blood Count 4.22, Mean Corpuscular Volume 94.1, Mean Corpuscular Hemoglobin 31.3, Mean Corpuscular Hemoglobin Concent 33.2, Mean Platelet Volume 9.5, Neutrophils (%) (Auto) 55.3, Lymphocytes (%) (Auto) 24.4, Monocytes (%) (Auto) 16.2, Eosinophils (%) (Auto) 2.9, Basophils (%) (Auto) 0.3, Neutrophils # (Auto ) 3.64, Lymphocytes # (Auto) 1.61, Monocytes # (Auto) 1.07, Eosinophils # (Auto ) 0.19, Basophils # (Auto) 0.02 06/09/17 01:05 Test 06/09/17 01:05 06/09/17 02:15 White Blood Count 6.59 K/uL (4.8-10.8) Red Blood Count 4.22 M/uL (4.7-6.1) Hemoglobin 13.2 g/dL (14.0-18.0) Hematocrit 39.7 % (42-52) Mean Corpuscular Volume 94.1 fL (80-100) Mean Corpuscular Hemoglobin 31.3 pg (25-34) Mean Corpuscular Hemoglobin Concent 33.2 g/dl (32-36) Platelet Count 256 K/uL (130-400) Mean Platelet Volume 9.5 fL (7.4-10.4) Neutrophils (%) (Auto) 55.3 % Lymphocytes (%) (Auto) 24.4 % Monocytes (%) (Auto) 16.2 % Eosinophils (%) (Auto) 2.9 % Basophils (%) (Auto) 0.3 % Neutrophils # (Auto) 3.64 K/uL (1.4-6.5) Lymphocytes # (Auto) 1.61 K/uL (1.2-3.4) Monocytes # (Auto) 1.07 K/uL (0.11-0.59) Eosinophils # (Auto) 0.19 K/uL (0-0.5) Basophils # (Auto) 0.02 K/uL (0-0.2) RDW Standard Deviation 45.0 fL (36.4-46.3) RDW Coefficient of Variation 13.1 % (11.5-14.5) Immature Granulocyte % (Auto) 0.9 % Immature Granulocyte # (Auto) 0.06 K/uL (0.00-0.02) Nucleated RBC Absolute Count (auto) 0.02 K/uL (0-0) Nucleated Red Blood Cells % 0.3 % Erythrocyte Sedimentation Rate 50 mm/hr (0-14) Anion Gap 7.0 mmol/L (3-11) Est Creatinine Clear Calc Drug Dose 114.9 ml/min Estimated GFR () 104.2 Estimated GFR (Non- 89.9 BUN/Creatinine Ratio 21.1 (10-20) Calcium Level 8.4 mg/dl (8.5-10.1) Total Bilirubin 0.3 mg/dl (0.2-1) Aspartate Amino Transf (AST/SGOT) 57 U/L (15-37) Alanine Aminotransferase (ALT/SGPT) 90 U/L (12-78) Alkaline Phosphatase 43 U/L (45-117) C-Reactive Protein 4.37 mg/dl (0-0.29) Total Protein 6.9 gm/dl (6.4-8.2) Albumin 2.9 gm/dl (3.4-5.0) Globulin 4.0 gm/dl (2.5-4.0) Albumin/Globulin Ratio 0.7 (0.9-2) Chemistry Specimen Hemolysis Urine Color YELLOW Urine Appearance CLEAR (CLEAR) Urine pH 6.0 (4.5-7.5) Urine Specific [place] 1.026 (1.000-1.030) Urine Protein NEG (NEG) Urine Glucose (UA) NEG (NEG) Urine Ketones NEG (NEG) Urine Occult Blood NEG (NEG) Urine Nitrite NEG (NEG) Urine Bilirubin NEG (NEG) Urine Urobilinogen NEG (NEG) Urine Leukocyte Esterase NEG (NEG) Medications Administered Medications (Trade) Dose Ordered Sig/Ysabel Route Start Time Stop Time Status Last Admin Dose Admin Hydromorphone HCl (Dilaudid Inj) 1 mg NOW STAT IV 06/09/17 00:54 06/09/17 00:56 DC 06/09/17 01:04 1 MG Ondansetron HCl (Zofran Inj) 4 mg NOW STAT IV 06/09/17 00:54 06/09/17 00:56 DC 06/09/17 01:02 4 MG Dexamethasone Sodium Phosphate (Dexamethasone Inj Pf) 10 mg NOW ONCE IV 06/09/17 01:15 06/09/17 01:16 DC 06/09/17 01:11 10 MG Hydromorphone HCl (Dilaudid Inj) 1 mg NOW STAT IV 06/09/17 01:19 06/09/17 01:21 DC 06/09/17 01:24 1 MG Fentanyl Citrate (Fentanyl Inj) 50 mcg NOW ONCE IV 06/09/17 02:00 06/09/17 02:01 DC 06/09/17 02:00 50 MCG Hydromorphone HCl (Dilaudid Inj) 1 mg NOW STAT IV 06/09/17 03:53 06/09/17 03:56 DC 06/09/17 05:05 1 MG Lorazepam (Ativan Inj) 1 mg NOW STAT IV 06/09/17 04:12 06/09/17 04:13 DC 06/09/17 04:32 1 MG Lorazepam (Ativan Inj) 2 mg NOW STAT IV 06/09/17 05:23 06/09/17 05:24 DC 06/09/17 05:23 2 MG Diazepam (Valium Inj) 10 mg NOW STAT IV 06/09/17 06:34 06/09/17 06:36 DC 06/09/17 06:45 7.5 MG ED Course Physical exam and history were performed. Nursing notes, EMR, and Medication List were personally reviewed. Patient appears to have severe low back pain following surgery 6 days ago. The patient is alert and admitted to this facility once postoperatively. The patient is in obvious severe discomfort, and because of this IV access was established and labs were obtained. The patient was given IV Dilaudid, IV Decadron, and IV Zofran. The patient's blood work is as above and was reviewed. He does not have a significantly elevated with also count or gross anemia. His sedimentation rate and CRP are elevated. His remaining labs are as above. The patient was not able to urinate for us, and evidently has not urinated in 22 hours. Bladder scan was performed, and should greater than 600 mL fluid. Because of this we provided additional 1 mg IV Dilaudid as well as IV fentanyl. A Brown catheter was placed, and a total of 1250 mL of urine was drained after placement. The patient did have a small amount of pain improvement after this, saying that his pain went from a 10/10 to a 9/10. Seeing as the patient has inflammatory marker elevation as well as significant urinary retention, I did speak with the CANDACE from [facility], who felt that MRI was the next appropriate step to rule out abscess or hematoma that may be contributing to the urinary retention and pain. I discussed this at length with the patient and family, and they were amenable to this. The patient was given additional pain medication as well as IV Ativan. The patient was sent to MRI for noncontrast study. Unfortunately, an MRI, the patient was not able to tolerate laying flat. He was able to comfortably get into about 30 position, however when he would advance past that he had significant pain. He was describing spasm that would prevent him from laying flat. The patient was given additional Ativan, and despite this he was not able to undergo MRI. I discussed the case with my attending physician, Dr. Cassidy, who also independently evaluated the patient. We agree the patient requires emergent MRI to identify the cause of his symptoms. Because of this we did speak with anesthesia, who evaluated the patient here in the department, and will assist in sedating the patient for the MRI. The patient remained in stable condition until the time of shift change. The case was discussed with Emma Carvalho PA-C, who will assume care at this time. Please see Ms Carvalho's dictation for further patient course, plan, and disposition. The chart was completed utilizing [employer] Speech Voice Recognition Software. Grammatical errors, random word insertions, pronoun errors, and incomplete sentences are an occasional consequence of this system due to software limitations, ambient noise, and hardware issues. Any formal questions or concerns about the content, text, or information contained within the body of this dictation should be directly addressed to the provider for clarification. . Medical Decision Differential diagnosis: Etiologies such as musculoskeletal, disc herniation, fracture, aortic disease, metastatic disease, cord compression, discitis, infection, renal colic, gastrointestinal, acute exacerbation of chronic back pain, sciatica, cauda equina, as well as others were entertained. Medication Reconcilliation Current Medication List: was personally reviewed by me Blood Pressure Screening Blood pressure disposition: Elevated BP felt to be situational Impression Primary Impression: Intractable back pain Additional Impression: Urinary retention Departure Information Referrals No Doctor, Assigned (PCP) Patient Instructions My [facility] Problem Qualifiers
--- NOTE | 2017-06-09 09:01 | DIAGNOSTIC IMAGING REPORT ---
LUMBAR SPINE MRI HISTORY: Back pain. Recent surg. Urinary retention. TECHNIQUE: Multiplanar multisequence MRI of the lumbar spine was performed without the use of contrast. COMPARISON: Lumbar spine 06/05/2017. FINDINGS: For the purpose of the report the L5-S1 disc space will be located on axial image 28 of 34. Alignment is intact. No fractures within the lumbar spine. Disc spaces are relatively preserved for age. There is posterior decompression fusion from L4 through S1 with pedicle screws and rods. The conus terminates at the L1 level. Extensive soft tissue edema posterior to the laminectomy sites. Visualized paraspinal soft tissues are within normal limits. There is a heterogeneous fluid collection at the laminectomy sites from the L4-5 through L5-S1 disc space level. This measures approximately 5.2 x 3.8 x 3.6 cm. Is contains multiple punctate hypointense foci which could represent gas bubbles of postoperative change. This results in significant mass effect along the thecal sac from the L4-L5 levels. Abnormal signal along the posterior thecal sac at the L1-L2 and L3-L4 disc space levels resulting in mass effect along the posterior thecal sac. This likely represents subdural fluid collections given the location. The subdural fluid collection at the L1-L2 disc space level measures 4 mm in thickness and the collection at the L3-L4 level measures 5 mm in thickness. There are additional fluid collections posterior to the thecal sac at the S1 and S2 levels also resulting in mass effect. These may represent epidural or subdural collections. L1-L2: Overall, mild mass effect along the cauda equina due to the posterior fluid collection which is likely subdural. No neural foraminal narrowing. L2-L3: No significant central canal narrowing. Mild to moderate bilateral neural foraminal narrowing. L3-L4: Moderate to severe mass effect along the cauda equina from the posterior fluid collection which favors a subdural fluid collection. Mild bilateral neural foraminal narrowing. L4-L5: Severe central canal narrowing due to the mass effect from the fluid collection at the laminectomy site. The thecal sac measures 3 mm in diameter. Mild to moderate bilateral neural foraminal narrowing. L5-S1: Severe central canal narrowing due to the mass effect from the fluid collection at the laminectomy sites. Moderate right and mild left neural foraminal narrowing. Right paracentral annular tear is noted. IMPRESSION: 1. A 5.2 x 3.8 x 3.6 cm nonspecific heterogeneous fluid collection at the laminectomy site from the L4-S1 levels. This could represent postoperative seroma, pseudomeningocele, or possibly a developing abscess. This results in significant mass effect with severe central canal narrowing at the L4-L5 and L5-S1 disc space levels. 2. Small fluid collections along the posterior aspect of the thecal sac at the L1-L2 disc space, L3-L4 disc space, S1 vertebral body, and S2 vertebral body levels. The majority of these appear to represent subdural fluid collections. However, epidural collections could also have a similar appearance. These result in mass effect and central canal narrowing at these levels as described above. These are nonspecific and could represent postoperative seromas, hematomas, or possibly abscesses in the appropriate clinical setting. Electronically signed by: Ismael Mueller M.D. 06/09/2017 9:00 AM Dictated Date/Time: 06/09/2017 8:40 AM
[2017-06-09 09:05] VITALS: TEMP 36.4; O2SAT 98
--- NOTE | 2017-06-09 09:11 | Anesthesiology Progress Note ---
Anesthesia Post Op Note Date & Time Jun 09, 2017 at 09:08 Vital Signs Pain Intensity: 7.0 Vital Signs Past 12 Hours Date Time Temp Pulse Resp B/P (MAP) Pulse Ox O2 Delivery O2 Flow Rate FiO2 06/09/17 07:02 98 20 149/111 94 Nasal Cannula 3.0 06/09/17 06:50 93 24 143/113 95 3.0 06/09/17 06:46 93 16 190/115 95 Nasal Cannula 2.0 06/09/17 06:15 94 20 171/92 93 Nasal Cannula 2.0 06/09/17 05:53 91 06/09/17 05:46 94 14 186/114 97 Nasal Cannula 06/09/17 04:37 76 16 160/108 96 Nasal Cannula 2.0 06/09/17 03:15 86 16 153/99 99 Nasal Cannula 2.0 06/09/17 02:09 81 20 148/91 94 Room Air 06/09/17 01:26 94 32 152/94 92 Room Air 06/09/17 00:43 36.9 100 24 181/112 97 Room Air Notes Mental Status: alert / awake / arousable, participated in evaluation Pt Amnestic to Procedure: Yes Nausea / Vomiting: adequately controlled Pain: adequately controlled Airway Patency, RR, SpO2: stable & adequate BP & HR: stable & adequate Hydration State: stable & adequate Anesthetic Complications: no major complications apparent Patient had significant pain and had received both IV dilaudid and several doses of ativan and one dose of valium. Given that I felt he was not appropriate to consent, I called and spoke to his who gave me verbal consent over the phone with an ER nurse as witness. Patient was taken to MRI and would not remain flat but I was able to gently sedate him with propofol, got him comfortable and transported onto the MRI bed with monitors. He had oxygen the entire procedure with a propofol drip with monitors for the lumbar spine MRI and he tolerated this very well. Afterwards we briefly recovered the patient in PACU until he met discharge criteria and then was taken back to his room in the ER as was the arrangement made with the attending ER physician and ER PA.
[2017-06-09] MEDS ORDERED: ATROPINE SULFATE 0.1 MG/ML 5ML SYR IV PRN (09:15)
[2017-06-09] MEDS ORDERED: EpHEDrine SULFATE INJ 50 MG/ML AMP IV PRN (09:15)
[2017-06-09] MEDS ORDERED: DEXAMETHASONE SOD INJ 4 MG/ML VIAL IV STA (11:13)
[2017-06-09] MEDS ORDERED: TAMSULOSIN HCL 0.4 MG CAP PO ONE (11:15)
[2017-06-09 11:30] VITALS: BP 174/103; PULSE 115; O2SAT 96
--- NOTE | 2017-06-09 11:42 | EMERGENCY ROOM VISIT NOTE ---
ED Visit Note First contact with patient: 10:19 ED NOTE: Care of this 62-year-old white male patient was signed out to me from Hosea Ho PA-C, at change of shift. Please refer to his dictation for the complete history, physical exam and ED course to this point. Briefly, patient is a 62- year-old white male who presented to the emergency department for evaluation of severe, intractable back pain with associated urinary retention, after undergoing recent lumbar decompression and fusion. At change of shift, lumbar MRI with sedation performed by anesthesia was pending. The patient was able to be adequately sedated to tolerate the MRI, and was recovered per protocol in PACU, then returned to the emergency department. MRI findings were reviewed with attending physician. Upon return to the emergency department, patient was uncooperative, verbally abusive to staff, and stated that he was leaving prior to completion of his care, despite reviewing the MRI findings with him, and discussing potential complications. I refer you to nursing notes for further documentation. With the patient's permission, I did review the MRI with the patient's via telephone. The patient was agreeable to wait in the emergency department until his arrived. MRI findings were reviewed with U staff, Dr. Emery/Bella Bacon PA-C. Please refer to her orthopedic consultation for further information. At her request, I did speak with urology , BIJU Jenkins, who stated that, regarding the urinary retention, the Brown catheter would be recommended for roughly 7-10 days. Flomax was also reasonable. I related this information to Bella Bacon PA-C. It was their assessment then, that the patient could be discharged to home, and that he did not require any surgical intervention, nor hospitalization for the MRI findings. She recommended a Medrol Dosepak. The patient was given his first dose of Flomax in the emergency department. He was given Decadron 10 mg IV. His Brown catheter was changed to a leg bag, and he was instructed on care. This patient will continue his pain medication as well as previously prescribed. He was also encouraged to follow all of his other postoperative instructions according to his surgeon. He should have a follow-up appointment with Dr. Xiao already scheduled for the next one to 2 weeks, an appointment was made for him in 1 week with urology to have the catheter removed. He was educated on the worrisome signs or symptoms for which she should return to the emergency department. The patient was otherwise completely neurovascularly intact during his emergency department stay. Upon return from MRI, he was sitting upright on the gurney, and sitting on the edge of the gurney with his legs dangling without difficulty. While upright, his dressing was removed, and his incision was evaluated. Staple line was intact, without erythema, increased warmth or induration. No drainage or discharge was noted. He was ambulatory in the exam room, and able to get dressed without discomfort. The patient was intermittently hypertensive during his ED stay, likely related to pain/ situation. Patient does have a history of hypertension, and is treated for this. It is also possible that he may not have had his scheduled medications as well. The patient rated his discomfort a 0/10 at discharge. DIAGNOSIS: Intractable postoperative back pain Urinary retention LUMBAR SPINE MRI HISTORY: Back pain. Recent surg. Urinary retention. TECHNIQUE: Multiplanar multisequence MRI of the lumbar spine was performed without the use of contrast. COMPARISON: Lumbar spine 06/05/2017. FINDINGS: For the purpose of the report the L5-S1 disc space will be located on axial image 28 of 34. Alignment is intact. No fractures within the lumbar spine. Disc spaces are relatively preserved for age. There is posterior decompression fusion from L4 through S1 with pedicle screws and rods. The conus terminates at the L1 level. Extensive soft tissue edema posterior to the laminectomy sites. Visualized paraspinal soft tissues are within normal limits. There is a heterogeneous fluid collection at the laminectomy sites from the L4-5 through L5-S1 disc space level. This measures approximately 5.2 x 3.8 x 3.6 cm. Is contains multiple punctate hypointense foci which could represent gas bubbles of postoperative change. This results in significant mass effect along the thecal sac from the L4-L5 levels. Abnormal signal along the posterior thecal sac at the L1-L2 and L3-L4 disc space levels resulting in mass effect along the posterior thecal sac. This likely represents subdural fluid collections given the location. The subdural fluid collection at the L1-L2 disc space level measures 4 mm in thickness and the collection at the L3-L4 level measures 5 mm in thickness. There are additional fluid collections posterior to the thecal sac at the S1 and S2 levels also resulting in mass effect. These may represent epidural or subdural collections. L1-L2: Overall, mild mass effect along the cauda equina due to the posterior fluid collection which is likely subdural. No neural foraminal narrowing. L2-L3: No significant central canal narrowing. Mild to moderate bilateral neural foraminal narrowing. L3-L4: Moderate to severe mass effect along the cauda equina from the posterior fluid collection which favors a subdural fluid collection. Mild bilateral neural foraminal narrowing. L4-L5: Severe central canal narrowing due to the mass effect from the fluid collection at the laminectomy site. The thecal sac measures 3 mm in diameter. Mild to moderate bilateral neural foraminal narrowing. L5-S1: Severe central canal narrowing due to the mass effect from the fluid collection at the laminectomy sites. Moderate right and mild left neural foraminal narrowing. Right paracentral annular tear is noted. IMPRESSION: 1. A 5.2 x 3.8 x 3.6 cm nonspecific heterogeneous fluid collection at the laminectomy site from the L4-S1 levels. This could represent postoperative seroma, pseudomeningocele, or possibly a developing abscess. This results in significant mass effect with severe central canal narrowing at the L4-L5 and L5-S1 disc space levels. 2. Small fluid collections along the posterior aspect of the thecal sac at the L1-L2 disc space, L3-L4 disc space, S1 vertebral body, and S2 vertebral body levels. The majority of these appear to represent subdural fluid collections. However, epidural collections could also have a similar appearance. These result in mass effect and central canal narrowing at these levels as described above. These are nonspecific and could represent postoperative seromas, hematomas, or possibly abscesses in the appropriate clinical setting. DIAGNOSIS: DISCHARGE INSTRUCTIONS: DO NOT drive, drink alcohol, operate machinery, or perform dangerous activities today. You were given medications in the ER that can affect your ability to safely function or operate a vehicle. Medrol Dosepak: Once daily until the prescription is finished. It is best to take this earlier in the day as some patients note occasional difficulty falling asleep when taken in the late evening. Continue your pain medications as prescribed by your spine surgeon. Flomax 0.4 mg : Take one tablet daily until Brown is removed. Acetaminophen(Tylenol) may be used for fever or pain. Use 1000mg every six hours as needed. Avoid using more than 3000mg in a 24 hour period. This medication can be taken if you need to drive, work, or perform activities which may be dangerous when taking narcotic pain medication. Rest and avoid heavy lifting until your symptoms resolve and then gradually return to full activity. Follow all of your post-operative instructions according to your surgeon as far as activity and lifting restrictions. Continue current medications. Return to the ER immediately for any numbness, tingling, severe pain, loss of control of your bowels or bladder, inability to walk, fevers, worsening symptoms or as needed. Follow up with Dr. Fisher as you have scheduled. Follow up with Dr. Centeno (urology) next Wednesday as scheduled for Brown removal.
--- NOTE | 2017-06-09 11:45 | Orthopedic Consultation ---
Orthopedic Consultation Date of Consultation: Jun 09, 2017. Attending Physician: Reason for Consultation: Urinary retention status post lumbar decompression fusion History of Present Illness This is a 62-year-old gentleman who presented to the emergency room last evening with complaints of urinary retention. He is well known to me. I admitted him via the emergency room over the weekend. He threatened to sign out AMA on Wednesday, June 07. He was subsequently discharged that day on Flexeril. He is been ambulating with a walker since. He's been taking oxycodone and Flexeril for pain control. He reports starting yesterday morning he had some difficulty voiding. He went to the emergency room last evening because of this. His pain and his back was a 10 out 10 at that point. No radicular leg pain. No peroneal numbness. Patient reports once Brown was inserted his back pain dissipated. When seen in the emergency room he has 2 security guards with him. Apparently he became combative and wanting to leave AMA again in the emergency room is trying to pull out his Brown catheter. He denies fevers or chills. Past Medical/Surgical History Medical Problems: (1) Postoperative back pain Status: Acute (2) Urinary retention Status: Acute Family History No pertinent family history Social History Smoking Status: Never Smoker Housing Status: lives with significant other Occupation Status: employed Allergies Coded Allergies: No Known Allergies (Unverified , 06/09/17) Home Medications Scheduled Carvedilol (Coreg), 6.25 MG PO BID Clonidine HCl (Clonidine HCl), 0.2 MG PO BID Scheduled PRN Cyclobenzaprine Hcl (Flexeril), 10 MG PO TID PRN for muscle spasms Hydrocodone/Acetaminophen 5MG/325MG ([place] 5MG/325MG), 1-2 TABLETS PO Q4 PRN for Pain Lorazepam (Ativan), 0.5 MG PO TID PRN for Anxiety Current Inpatient Medications Current Inpatient Medications Medications (Trade) Dose Ordered Sig/Ysabel Route Start Time Stop Time Status Last Admin Dose Admin Ephedrine Sulfate (EpHEDrine SULFATE INJ) 5 mg Q5M PRN IV 06/09/17 09:15 06/09/17 14:30 Atropine Sulfate (Atropine Sulfate 0.1MG/Ml Inj) 0.5 mg Q1M PRN IV 06/09/17 09:15 06/09/17 14:30 Review of Systems Genitourinary - Male: + urinary retention Physical Exam Date Time Temp Pulse Resp B/P (MAP) Pulse Ox O2 Delivery O2 Flow Rate FiO2 06/09/17 11:30 115 18 174/103 96 Room Air 06/09/17 10:40 118 16 164/101 93 Room Air 06/09/17 09:05 36.4 101 18 138/100 98 Nasal Cannula 2 06/09/17 08:55 113 18 101/93 97 Nasal Cannula 2 06/09/17 08:45 36.3 103 18 163/104 95 Oxymask 10 06/09/17 07:02 98 20 149/111 94 Nasal Cannula 3.0 06/09/17 06:50 93 24 143/113 95 3.0 06/09/17 06:46 93 16 190/115 95 Nasal Cannula 2.0 06/09/17 06:15 94 20 171/92 93 Nasal Cannula 2.0 06/09/17 05:53 91 06/09/17 05:46 94 14 186/114 97 Nasal Cannula 06/09/17 04:37 76 16 160/108 96 Nasal Cannula 2.0 06/09/17 03:15 86 16 153/99 99 Nasal Cannula 2.0 06/09/17 02:09 81 20 148/91 94 Room Air 06/09/17 01:26 94 32 152/94 92 Room Air 06/09/17 00:43 36.9 100 24 181/112 97 Room Air Patient was seen in the emergency room. He is sitting on the edge of the bed. No obvious distress. 2 security guards are present. Fully catheters intact and draining. Lower extremities he is neurologically intact. Calves are soft and nontender bilaterally. His lumbar incision has modest edema. No ecchymosis. No purulent drainage. No erythema. [place] intact General Appearance: no apparent distress Head: normocephalic Eyes: normal inspection ENT: hearing grossly normal Neck: supple Respiratory/Chest: no respiratory distress Cardiovascular: regular rate, rhythm Abdomen/GI: soft Neurologic/Psych: oriented x 3 Skin: normal color, warm/dry Lymphatic: no adenopathy Laboratory Results Last 24 Hours Test 06/09/17 01:05 06/09/17 02:15 White Blood Count 6.59 K/uL Red Blood Count 4.22 M/uL Hemoglobin 13.2 g/dL Hematocrit 39.7 % Mean Corpuscular Volume 94.1 fL Mean Corpuscular Hemoglobin 31.3 pg Mean Corpuscular Hemoglobin Concent 33.2 g/dl Platelet Count 256 K/uL Mean Platelet Volume 9.5 fL Neutrophils (%) (Auto) 55.3 % Lymphocytes (%) (Auto) 24.4 % Monocytes (%) (Auto) 16.2 % Eosinophils (%) (Auto) 2.9 % Basophils (%) (Auto) 0.3 % Neutrophils # (Auto) 3.64 K/uL Lymphocytes # (Auto) 1.61 K/uL Monocytes # (Auto) 1.07 K/uL Eosinophils # (Auto) 0.19 K/uL Basophils # (Auto) 0.02 K/uL RDW Standard Deviation 45.0 fL RDW Coefficient of Variation 13.1 % Immature Granulocyte % (Auto) 0.9 % Immature Granulocyte # (Auto) 0.06 K/uL Nucleated RBC Absolute Count (auto) 0.02 K/uL Nucleated Red Blood Cells % 0.3 % Erythrocyte Sedimentation Rate 50 mm/hr Sodium Level 139 mmol/L Potassium Level 3.9 mmol/L Chloride Level 106 mmol/L Carbon Dioxide Level 26 mmol/L Anion Gap 7.0 mmol/L Blood Urea Nitrogen 19 mg/dl Creatinine 0.90 mg/dl Est Creatinine Clear Calc Drug Dose 114.9 ml/min Estimated GFR () 104.2 Estimated GFR (Non- 89.9 BUN/Creatinine Ratio 21.1 Random Glucose 109 mg/dl Calcium Level 8.4 mg/dl Total Bilirubin 0.3 mg/dl Aspartate Amino Transf (AST/SGOT) 57 U/L Alanine Aminotransferase (ALT/SGPT) 90 U/L Alkaline Phosphatase 43 U/L C-Reactive Protein 4.37 mg/dl Total Protein 6.9 gm/dl Albumin 2.9 gm/dl Globulin 4.0 gm/dl Albumin/Globulin Ratio 0.7 Chemistry Specimen Hemolysis Urine Color YELLOW Urine Appearance CLEAR Urine pH 6.0 Urine Specific [place] 1.026 Urine Protein NEG Urine Glucose (UA) NEG Urine Ketones NEG Urine Occult Blood NEG Urine Nitrite NEG Urine Bilirubin NEG Urine Urobilinogen NEG Urine Leukocyte Esterase NEG Patient Name: BENJIE KWON Unit Number: [id number] Dictated: 06/09/17839 Transcribed: 06/09/17839 [facility] Printed Date/Time: [~ rep prt dt]/[~ rep prt tm] [~ rep ct labl] - [~ rep ct ivnm] [facility] [place] [address] Dictated: 06/09/17839 Transcribed: 06/09/17839 [facility] Printed Date/Time: [~ rep prt dt]/[~ rep prt tm] [~ rep ct labl] - [~ rep ct ivnm] Patient: BENJIE KWON Address1: [address] [place] [address] Rec: [id number] Address2: [place] [address] Acct ID: [id number] [facility] Zip: [id number] Date: 1955 Sex: M Room/Bed: Ref Phy: No Doctor, Assigned SC: [email or web address] Att Phy: Report #: [id number] Barbara Phy: No Doctor, Assigned Test: LSWOC Admit Phy: Delivery Mgr: ZAK Interpreting Phy: Ismael Mueller MD Diagnosis: BACK,BACK OF LEG PAIN Ordering Phy: Hosea Ho PA-C Service Date: 06/09/17 Admit Date: 06/09/17 MNE: [id number] CONF: DICTATED BY: Ismael Mueller M.D.]] CC: Hosea Ho PA-C Flickinger, Bridget B., M.D. No Doctor, Assigned Endcc: [~ rep ct add3]] LUMBAR SPINE MRI HISTORY: Back pain. Recent surg. Urinary retention. TECHNIQUE: Multiplanar multisequence MRI of the lumbar spine was performed without the use of contrast. COMPARISON: Lumbar spine 06/05/2017. FINDINGS: For the purpose of the report the L5-S1 disc space will be located on axial image 28 of 34. Alignment is intact. No fractures within the lumbar spine. Disc spaces are relatively preserved for age. There is posterior decompression fusion from L4 through S1 with pedicle screws and rods. The conus terminates at the L1 level. Extensive soft tissue edema posterior to the laminectomy sites. Visualized paraspinal soft tissues are within normal limits. There is a heterogeneous fluid collection at the laminectomy sites from the L4-5 through L5-S1 disc space level. This measures approximately 5.2 x 3.8 x 3.6 cm. Is contains multiple punctate hypointense foci which could represent gas bubbles of postoperative change. This results in significant mass effect along the thecal sac from the L4-L5 levels. Abnormal signal along the posterior thecal sac at the L1-L2 and L3-L4 disc space levels resulting in mass effect along the posterior thecal sac. This likely represents subdural fluid collections given the location. The subdural fluid collection at the L1-L2 disc space level measures 4 mm in thickness and the collection at the L3-L4 level measures 5 mm in thickness. There are additional fluid collections posterior to the thecal sac at the S1 and S2 levels also resulting in mass effect. These may represent epidural or subdural collections. L1-L2: Overall, mild mass effect along the cauda equina due to the posterior fluid collection which is likely subdural. No neural foraminal narrowing. L2-L3: No significant central canal narrowing. Mild to moderate bilateral neural foraminal narrowing. L3-L4: Moderate to severe mass effect along the cauda equina from the posterior fluid collection which favors a subdural fluid collection. Mild bilateral neural foraminal narrowing. L4-L5: Severe central canal narrowing due to the mass effect from the fluid collection at the laminectomy site. The thecal sac measures 3 mm in diameter. Mild to moderate bilateral neural foraminal narrowing. L5-S1: Severe central canal narrowing due to the mass effect from the fluid collection at the laminectomy sites. Moderate right and mild left neural foraminal narrowing. Right paracentral annular tear is noted. IMPRESSION: 1. A 5.2 x 3.8 x 3.6 cm nonspecific heterogeneous fluid collection at the laminectomy site from the L4-S1 levels. This could represent postoperative seroma, pseudomeningocele, or possibly a developing abscess. This results in significant mass effect with severe central canal narrowing at the L4-L5 and L5-S1 disc space levels. 2. Small fluid collections along the posterior aspect of the thecal sac at the L1-L2 disc space, L3-L4 disc space, S1 vertebral body, and S2 vertebral body levels. The majority of these appear to represent subdural fluid collections. However, epidural collections could also have a similar appearance. These result in mass effect and central canal narrowing at these levels as described above. These are nonspecific and could represent postoperative seromas, hematomas, or possibly abscesses in the appropriate clinical setting. Electronically signed by: Ismael Mueller M.D. 06/09/2017 9:00 AM Dictated Date/Time: 06/09/2017 8:40 AM The status of this report is Signed. Draft = Not yet reviewed or approved by Radiologist. Signed = Reviewed and approved by Radiologist. <AttendingPhy></AttendingPhy> <FamilyPhy>No Doctor, Assigned</FamilyPhy> < PrimaryPhy>No Doctor, Assigned</PrimaryPhy> <UnitNumber>[id number]</UnitNumber> <VisitNumber>[id number]</VisitNumber> <PatientName>BENJIE KWON</ PatientName> <DateOfBirth>1955</DateOfBirth> <Location[facility]</Location> < ServiceDate>06/09/17</ServiceDate> <MNE>ESINDI</MNE> <OrderingPhy>Hosea Ho PA-C</OrderingPhy> <OrderingPhyMNE>f rep ord dr randhawa</OrderingPhyMNE> < DictatingPhyMNE>f rep dict dr randhawa</DictatingPhyMNE> <CCListMNE>f rep ct edis</ CCListMNE> <AdmittingPhyMNE>f pt admit dr randhawa</AdmittingPhyMNE> <AttendingPhyMNE >f pt attend dr randhawa</AttendingPhyMNE> <ConsultingPhyMNE>f pt consult dr randhawa</ConsultingPhyMNE> <FamilyPhyMNE>f pt fam dr randhawa</FamilyPhyMNE> <OtherPhyMNE>f pt other dr randhawa</OtherPhyMNE> < PrimaryPhyMNE>f pt prim care dr randhawa</PrimaryPhyMNE> <ReferringPhyMNE>f pt referring dr randhawa</ReferringPhyMNE> Assessment & Plan Assessment: Urinary retention status post lumbar decompression fusion. Possibly related to narcotics versus postoperative seroma versus hematoma Plan: I have reviewed the case with both Dr. Emery as well as Dr. Xiao. Patient is neurologically intact. Pain is controlled now that his Brown catheter in place. Urology has been consulted for his urinary retention. Current plan is to start him on Flomax and follow-up in 7-10 days and urology office for a voiding trial. I have also asked to give him a Medrol dose pack upon discharge. He is stable to go home. I have also contacted Dr. Xiao's office for earlier follow-up, hopefully by Wednesday. If the patient develops any fever, worsening back pain, radicular leg complaints or difficulty with ambulation or weakness he is to go to the emergency room.
[2017-06-09] MEDS ORDERED: METH4PAK PO (11:46)
[2017-06-09] MEDS ORDERED: TAMS0.4C38 PO (11:46)
== END 2017-06-09 12:00 | disposition home or self-care (01) ==
LOC: C.EDB 00:35
DX: G89.18 Other acute postprocedural pain (principal); M54.9 Dorsalgia, unspecified; R33.9 Retention of urine, unspecified; I10 Essential (primary) hypertension; Z98.1 Arthrodesis status; Z79.899 Other long term (current) drug therapy